=== PATIENT | female | born 1995 | race Caucasian/White ===

== ENCOUNTER 2023-11-22 14:58 | Emergency (ER) | payer BC ==
[~2023-11-22] VITALS: Ht 177.8 cm; Wt 113.6 kg
[2023-11-22 15:27] VITALS: TEMP 98.2
[2023-11-22 17:12] VITALS: BP 111/65; PULSE 68
== END 2023-11-22 17:12 | disposition home or self-care (01) ==
LOC: COL.ER 14:58
DX: S99.912A Unspecified injury of left ankle, initial encounter (principal); W17.2XXA Fall into hole, initial encounter; X50.1XXA Overexertion from prolonged static or awkward postures, initial encounter